=== PATIENT | male | born 1960 | race Caucasian/White ===

== ENCOUNTER 2024-06-19 03:52 | Day surgery (SDC) | payer OTHER ==
[2024-06-19] VITALS (213 sets, daily range): BP systolic 93–144; BP diastolic 47–82
[~2024-06-19] VITALS: Ht 188 cm; Wt 81.8 kg
[2024-06-19] MEDS ORDERED: SODIUM CHLORIDE 0.9% 1,000 ML IV PRN ×3 (07:00→14:05)
--- NOTE | 2024-06-19 07:00 | NUR ---
Patient arrived to the ANR suite, identification and demographics confirmed. Patient to room 9, AAO, ambulatory, vitals obtained, ID/allergy/fall bands placed, changed into hospital gown, SAURABH hose, and non-slip socks. Procedure and timeline explained for treatment and discharge. All questions answered and the patient presents no concerns at this time.
[2024-06-19] MEDS ORDERED: SCOPOLAMINE 1.5 MG DIS TD PRN (07:30)
[2024-06-19] MEDS ORDERED: LACTATED RINGER'S 1,000 ML IV PRN ×2 (07:30→09:10)
[2024-06-19] MEDS ORDERED: cloNIDine HCL 0.1 MG/TAB PO PRN (07:30)
[2024-06-19] MEDS ORDERED: CYANOCOBALAMIN 500 MCG/TAB ( B12) PO PRN (07:30)
[2024-06-19] MEDS ORDERED: diazePAM 5 MG/TAB PO PRN ×2 (07:30→08:30)
[2024-06-19] MEDS ORDERED: PANTOPRAZOLE SODIUM Sesquihydr 40 MG/TAB PO PRN (07:30)
[2024-06-19] MEDS ORDERED: ALBUTEROL SULFATE 2.5 MG VIAL IN PRN (07:30)
[2024-06-19] MEDS ORDERED: FAMOTIDINE 20 MG/TAB PO PRN (07:30)
--- NOTE | 2024-06-19 07:50 | NUR ---
Dr. Gould telephoned with patient intake information including usage, dose, last dose/time taken and initial vital signs. Patient history and allergies reviewed with MD. Orders received for 5 mg PO Valium and 0.2 mg PO Clonidine now. Will reassess per protocol in 1.5 hours and update MD with assessment and vitals.
[2024-06-19] MEDS ORDERED: ASCORBIC ACID 4,000 MG in SODIUM CHLORIDE 0.9% 1,000 ML IV SCH (08:00)
[2024-06-19 08:31] LABS: BASO% 0.5 % (0-3); EOS% 3.5 % (0-8); HEMATOCRIT 39.2 % (39.0-50.0); HEMOGLOBIN 13.3 g/dl (14.0-18.0); LYMPH% 29.4 % (15-41); MEAN CELL VOLUME 100.5 fL CALC (80.0-100.0); MEAN CORPUSCULAR HGB 34.1 pG CALC (26.0-32.0); MEAN CORPUSCULAR HGB CONC 33.9 g/dL CAL (32.0-36.0); MONO% 11.4 % (2-13); NEUT# 2.24 thou/uL (1.82-7.42); NEUT% 55.2 % (42-76); RED BLOOD COUNT 3.9 mill/uL (4.70-6.10); RED CELL DISTRI WIDTH 11.9 % (11.5-15.5)
[2024-06-19] MEDS ORDERED: PRAMIPEXOLE DIHY1 MG PO (08:35)
[2024-06-19] MEDS ORDERED: DIAZEPAM5 M1 PO (08:36)
[2024-06-19] MEDS ORDERED: [UNRECOGNIZED DRUG - OTHER] PO (08:38)
[2024-06-19 08:46] LABS: ALBUMIN 4.5 g/dL (3.2-5.0); BILIRUBIN, TOTAL 0.6 mg/dL (0.2-1.3); CREATININE 0.8 mg/dL (0.7-1.3); POTASSIUM 4.5 mmol/l (3.5-5.1); TOTAL PROTEIN 6.8 g/dL (6.3-8.2)
[2024-06-19] MEDS ORDERED: SUCCINYLCHOLINE CHLORIDE 20 MG/ML 10ML VIAL IV PRN (09:10)
[2024-06-19] MEDS ORDERED: LIDOCAINE HCL 1% (10MG/ML) 100 MG/10 ML MDV VT PRN ×2 (09:10)
[2024-06-19] MEDS ORDERED: STERILE WATER FOR IRRIGATION 1,000 ML BTL IR PRN (09:10)
[2024-06-19] MEDS ORDERED: THIAMINE HCL 100 MG/ML 2ML VIAL IV PRN (09:10)
[2024-06-19] MEDS ORDERED: MAGNESIUM SULFATE HEPTAHYDRATE 100 ML IV PRN (09:10)
[2024-06-19] MEDS ORDERED: PROPOFOL 100 ML IV PRN (09:10)
[2024-06-19] MEDS ORDERED: DiphenhydrAMINE HCL 50 MG/ML SDV IV PRN (09:10)
[2024-06-19] MEDS ORDERED: PROPOFOL 10 MG/ML 100ML VIAL IV PRN (09:10)
[2024-06-19] MEDS ORDERED: MIDAZOLAM HCL 2 MG/2 ML VIAL IV PRN ×3 (09:10→14:10)
[2024-06-19] MEDS ORDERED: ROCURONIUM BROMIDE 10 MG/ML 5 ML VIAL IV PRN (09:10)
[2024-06-19] MEDS ORDERED: cloNIDine HYDROCHLORIDE 100 MCG/ML 10 ML INJ IV PRN (09:10)
[2024-06-19] MEDS ORDERED: OCTREOTIDE ACETATE 100 MCG/VIAL SDV SC PRN (09:10)
[2024-06-19] MEDS ORDERED: NALTREXONE HCL 50 MG/TAB VT PRN (09:10)
[2024-06-19] MEDS ORDERED: ONDANSETRON HCl 4 MG/2 ML SDV IV PRN ×3 (09:10→19:00)
[2024-06-19] MEDS ORDERED: POTASSIUM CHLORIDE 20 MEQ/100 ML BAG IV PRN (09:10)
[2024-06-19] MEDS ORDERED: LIDOCAINE HCL 1% (10MG/ML) 100 MG/10 ML MDV IV PRN (09:10)
[2024-06-19] MEDS ORDERED: diazePAM 5 MG/TAB VT PRN (09:10)
[2024-06-19] MEDS ORDERED: cloNIDine HCL 0.1 MG/TAB VT PRN (09:10)
--- NOTE | 2024-06-19 09:16 | NUR ---
Patient resting comfortably in bed. Easily aroused, maintains focus, and drifts back to sleep. No signs of active withdrawal or distress noted at this time. Continuous SPO2, rhythm, and respiratory monitoring initiated. IVF @ 250 mL/HR, room air, VSS.
--- NOTE | 2024-06-19 10:43 | NUR ---
AT BEDSIDE TO ASSESS PT AND DISCUSS POC AND PROCEDURE.
--- NOTE | 2024-06-19 11:11 | NUR ---
Induction Note Patient to ANR procedure room. Time out performed at 1043. Patient placed on monitors, Afshin hugger, bilateral wrist restraints applied for ET tube protection. Versed 5mg given IV push at 1105 Tourniquet applied to right arm Lidocaine 100mg given at 1106 IV push followed by Rocoronium 10mg at 1107 IV push and held for 90 seconds. Propofol bolus of 160mg given at 1109 IV push. Succinylcholine 100mg given IV push at 1110. Smooth intubation with 7.5 ETT. Positive CO2. Positive Auscultation for air exchange. ET tube secured with tape by Dr. Gould 22 @ the lip. Patient placed on ventilator for spontaneous ventilation. Placed on Propofol IV drip at 1111. OG inserted. Positive air on auscultation. Positive gastric content. Stomach washed at this time.
--- NOTE | 2024-06-19 11:20 | NUR ---
OG close note Stomach washed at this time. Naltrexone 50 mg with Clonidine 0.1 mg via OG tube. OG will be clamped for 45 minutes.
[2024-06-19] MEDS ORDERED: DEXMEDETOMIDINE HCL IN SODIUM 100 ML IV SCH (11:55)
--- NOTE | 2024-06-19 12:05 | NUR ---
OG open note OG open at this time. Gastric content draining into drainage bag. OG to drain for 45 minutes. Propofol will be titrated down based on patient.
--- NOTE | 2024-06-19 12:50 | NUR ---
OG close note Stomach washed at this time. Naltrexone 50 mg with Clonidine 0.1 mg via OG tube. OG will be clamped for 45 minutes.
[2024-06-19] MEDS ORDERED: NALTREXONE50 MG PO (13:27)
[2024-06-19] MEDS ORDERED: CLONIDINE0.1 MG PO (13:27)
[2024-06-19] MEDS ORDERED: KLONOPIN2 MG PO (13:28)
[2024-06-19] MEDS ORDERED: clonazePAM 1 MG/TAB PO PRN (14:05)
--- NOTE | 2024-06-19 14:20 | NUR ---
No OG close at this time. Patient minimally reacting to treatment. Vitals, total Naltrexone & Clonidine, current Propofol infusion rate, treatment duration, and patient assessment discussed with Dr. Gould. No orders for medication administration at this time. OG will remain open to allow time for patient to continue reacting to therapy.
[2024-06-19] MEDS ORDERED: LIDOCAINE HCL 1% (10MG/ML) 100 MG/10 ML MDV IV SCH (16:30)
[2024-06-19] MEDS ORDERED: ACETAMINOPHEN 1,000 MG/100 ML VIAL IV SCH (16:30)
[2024-06-19] MEDS ORDERED: KETOROLAC TROMETHAMINE 30 MG/ML SDV IV SCH (16:30)
--- NOTE | 2024-06-19 16:30 | NUR ---
OG close note Stomach washed at this time. No orders for Naltrexone or Clonidine at this time. Valium 10mg via OG tube. OG will be clamped for 20-30 minutes for closing dose.
--- NOTE | 2024-06-19 17:03 | NUR ---
Extubation note Closing medications given Benadryl 50mg IV push, Decadron 10mg IV push,Magnesium 4 grams IV, Zofran 8mg IV push, Octreotide 100mcg SC. Stomach washed out prior to extubation. Suctioned gastric content. OG removed. Patient extubated. Propofol Discontinued. Wrist restraints removed. Afshin hugger Removed. See ANR Moderate sedate recovery record for further notes and assessment.
--- NOTE | 2024-06-19 17:16 | NUR ---
all pt personal belongings store in locker purple #1 in ANR department.
--- NOTE | 2024-06-19 17:43 | NUR ---
phone call placed to pt . update provided at this time. all questions and concerns addressed.
[2024-06-19] MEDS ORDERED: ACETAMINOPHEN 1,000 MG/100 ML VIAL IV PRN (19:00)
[2024-06-19] MEDS ORDERED: HALOPERIDOL LACTATE 5 MG/ML SDV IV PRN ×2 (19:00→20:00)
[2024-06-19] MEDS ORDERED: PROMETHAZINE HCL 12.5 MG in SODIUM CHLORIDE 0.9% 50 ML IV PRN (19:00)
[2024-06-19] MEDS ORDERED: KETOROLAC TROMETHAMINE 30 MG/ML SDV IV PRN (19:00)
[2024-06-19] MEDS ORDERED: PROMETHAZINE HCL 25 MG in SODIUM CHLORIDE 0.9% 50 ML IV PRN (19:00)
[2024-06-19] MEDS ORDERED: ACETAMINOPHEN 500 MG TAB PO PRN (19:00)
--- NOTE | 2024-06-19 19:45 | NUR ---
RECEIVED REPORT FROM ANR NURSE JENISE RN. PT NOTED LAYING IN BED SEMI FOWLERS, A/OX3. PT ON RM AIR. PT C/O LOWER ABD PAIN AND NAUSEA. PRN MEDICATION ADMINSITERED PER EMAR. PT TOLERATED WELL AT THIS TIME. NURSING ASSESSMENT COMPLETED, IV SITE APPEARS HEALTHY AND INTACT WITH IVF RUNNING PER EMAR. PT ASKED ABOUT HOME MED "PRAMIPEXOLE" AND IF THEY WILL RECEIVE IT TONIGHT. WILL NEED TO FOLLOW UP WITH PHYSICIAN. PT C/O RESTLESS LEG AND STATES "MEDICATION HELPS WITH RESTLESS LEG." WILL FOLLOW UP. ENCOURAGED PT TO REST AT THIS TIME. VSS. NO S/S OF DISTRESS. CALL LIGHT WITHIN REACH AND SAFETY PRECAUTIONS IN PLACE. BED ALARM ON.
--- NOTE | 2024-06-19 20:30 | NUR ---
CALLED AND INFORMED OF PT STATUS @1938. TORB AND FAXED TO PHARMACY. PHARMACY INFORMED HOSPITAL DOES NOT CARRY PRAMIPEXOLE ORDERED. PHYSICAIN WAS INFORMED HOSPITAL DOES NOT CARRY MEDICATION BUT THAT PT DID BRING MEDICAITON FROM HOME. GAVE PERMISSION TO GIVE PT ONE TABLET ORDERED FROM AT HOME [facility]. NURSING WAREHOUSE PICKER WAS INFOMRED AND DID ASSISTED WITH RETRIEVING MEDICATION. PT ADMINSITERED AT HOME MED AND HALDOL FOR KATT. ENCOURAGED PT TO GET SOME REST NOW. OFFERED COMFORT MEASURES. CALL LIGHT WITHIN REACH AND SAFETY PRECAUTIONS IN PLACE. BED ALARM ON.
[2024-06-19] MEDS ORDERED: PATIENT' OWN MED 1 EA DOSE PO PRN (21:00)
[2024-06-19] MEDS ORDERED: PATIENT' OWN MED CONTROLLED 1 EA DOSE IV PRN (21:00)
--- NOTE | 2024-06-19 21:30 | NUR ---
PT STILL C/O RESTLESS LEG, HAS NOT SLEPT, PRESENTS VERY RESTLESS. STAFF HAVE TRIED ASSISTING PT WITH WALKING UP AND DOWN [place] TO HELP WITH RESTLESS LEG. ADMINISTERED PRN MED FOR KATT PER EMAR. PT POSITIONED IN BED SUPINE, BEAR HUGGER APPLIED FOR COMFORT. ENOURAGED TO REST AND SLEEP FOR RECOVERY. BED ALARM ON AND SAFETY PRECAUTIONS IN PLACE.
[2024-06-19] MEDS ORDERED: cloNIDine HCL 0.1 MG/TAB PO SCH (23:00)
--- NOTE | 2024-06-19 23:00 | NUR ---
PT IS STILL C/O RESTLESS LEG AND HAS NOT SLEPT. ADMISNITERED PRN PAIN MEDICATION AND KATT MED PER EMAR. COMFORT MEASURES AND RELAXATION TECHNIQUES APPLIED. BED ALARM ON AND SAFETY PRECAUTIONS IN PLACE.
[2024-06-20] MEDS ORDERED: KETOROLAC TROMETHAMINE 30 MG/ML SDV IV PRN (00:05)
[2024-06-20] MEDS ORDERED: GABAPENTIN 300 MG/CAP PO SCH (00:15)
[2024-06-20] MEDS ORDERED: diazePAM 5 MG/TAB PO SCH (00:15)
--- NOTE | 2024-06-20 00:15 | NUR ---
PT STILL C/O RESTLESS LEG, STATES BEING VERY UNCOMFORTABLE. HAS NOT BEEN ABLE TO SLEEP AT ALL AT THIS TIME. WAS INFORMED OF PT STATUS AND PREVIOUS MEDS NOT BEING EFFECTIVE AT THIS TIME. TORD NEW ORDERS AND FAXED TO PHARMACY. ADMINSITERED MEDS PER EMAR AND PT TOLERATED WELL. ENCOURAGED PT TO REST AND PROMOTE SLEEP. PT ALSO RECEIVED SCHEDULED MEDS PER EMAR AND TOLERATED WELL. PT DENIES ANY N/V/P. IVF RUNNING PER EMAR. CALL LIGHT WITHIN REACH AND SAFETY PRECAUTIONS IN PLACE.
--- NOTE | 2024-06-20 02:30 | NUR ---
PT LAYING IN BED SUPINE, FINALLY SLEEPING. SNORING HEARD. BED ALARM ON AND SAFETY PRECAUTIONS IN PLACE.
[2024-06-20 03:52] VITALS: BP 127/58
[2024-06-20] MEDS ORDERED: NALTREXONE HCL 50 MG/TAB PO SCH (04:00)
[2024-06-20] MEDS ORDERED: clonazePAM 1 MG/TAB PO PRN ×2 (04:00→08:00)
[2024-06-20] MEDS ORDERED: cloNIDine HCL 0.1 MG/TAB PO PRN (04:00)
--- NOTE | 2024-06-20 04:30 | NUR ---
ADMINISTERED SCHEDULED MEDS PER EMAR. PT IS EASILY AROUSABLE BUT DROWSY. A/OX2 TO SELF AND PALCE. PT TOLERATED MEDS AND DENIES ANY N/V/P. STAFF ASSIST PT WITH AMBULATING TO BATHROOM, VOIDED BUT STILL C/O DIFFICULTY STARTING STREAM. ASSISTED WITH AMBULATING BACK INTO BED. PT LAYING IN BED SUPINE. BEAR HUGGER IN PLACE FOR COMFORT. IVF RUNNING PER EMAR. ENCOURAGED PT TO CONITNUE SLEEPING. VSS. NO S/S OF DISTRESS. CALL LIGHT WITHIN REACH, BED ALARM ON AND SAFETY PRECAUTIONS IN PLACE.
[2024-06-20 07:07] LABS: BASO% 0.1 % (0-3); HEMATOCRIT 39.4 % (39.0-50.0); HEMOGLOBIN 13.6 g/dl (14.0-18.0); IMMATURE GRANULOCYTES 0.1 % (0.0-5.0); LYMPH% 9.8 % (15-41); MEAN CELL VOLUME 97.5 fL CALC (80.0-100.0); MEAN CORPUSCULAR HGB 33.7 pG CALC (26.0-32.0); MEAN CORPUSCULAR HGB CONC 34.5 g/dL CAL (32.0-36.0); NEUT# 5.75 thou/uL (1.82-7.42); RED BLOOD COUNT 4.04 mill/uL (4.70-6.10); RED CELL DISTRI WIDTH 11.6 % (11.5-15.5)
[2024-06-20 07:28] LABS: ALBUMIN 4.3 g/dL (3.2-5.0); CREATININE 0.8 mg/dL (0.7-1.3); MAGNESIUM 2.3 mg/dL (1.6-2.3); POTASSIUM 4.3 mmol/l (3.5-5.1); TOTAL PROTEIN 6.7 g/dL (6.3-8.2)
--- NOTE | 2024-06-20 07:57 | NUR ---
patient resting in bed; room air; breathing unlabored and even; no s.s of distress at this time; currently waiting on breakfast to come; denied any n/d/v at this time; labs and status of patient was called to provider; personal items in ANR locker; patient tolerated medication with no issues; head to toe completed; iv site clean and intact running with LR @100;no complaints; call light within reach; bed in lowest postion;saftey measures in place; bed alarm activated
[2024-06-20] MEDS ORDERED: ACETAMINOPHEN 325 MG/TAB PO SCH (08:00)
[2024-06-20] MEDS ORDERED: PANTOPRAZOLE SODIUM Sesquihydr 40 MG/TAB PO SCH (08:00)
[2024-06-20] MEDS ORDERED: cloNIDine HCL 0.1 MG/TAB PO SCH (08:00)
[2024-06-20 08:11] VITALS: BP 118/59
[2024-06-20] MEDS ORDERED: Cholecalciferol 2,000 UNIT/TAB PO PRN (09:00)
[2024-06-20] MEDS ORDERED: MAGNESIUM OXIDE 400 MG/TAB PO PRN (09:00)
[2024-06-20] MEDS ORDERED: ACETAMINOPHEN 500 MG TAB PO PRN (09:00)
--- NOTE | 2024-06-20 09:47 | NUR ---
assited patient to bathroom, steady gait, verbalized he is tired, educated on POC, encouraged patient to rest some more; iv site clean and intact reattached to fluids; rand yamileer applied; safety meaures in place
--- NOTE | 2024-06-20 12:00 | NUR ---
patient a/o x3; room air; breathing unlabored; wanted to know when he can discharge , educated on poc and needing to shower and walk; personal items in anr locker; patient currently sitting up eating lunch with no issues; denied any pain; denied any nd/v/ at this time, writter assited patient to bathroom with no issues; patient have steady gait; no complaints; provider already came and seen patient; call light within reach,verbalized understanding on how to use, personal items in anr locker; bed in lowest postion;saftey measures in place
--- NOTE | 2024-06-20 12:54 | NUR ---
patient had a shower and currently walking down hallway with no issues; fidencio came and talked to vale
== END 2024-06-20 15:37 | disposition home or self-care (01) | DRG 897 ==
LOC: MS2 03:52 → ANR 03:52
PROVIDERS: ATTEND Anesthesiology Critical Care Medicine
DX: F11.20 Opioid dependence, uncomplicated (principal)
CPT/HCPCS: J0131; J1100; J1200; J1630; J2354; J2405; J2550; J2704; J3475; J3480